=== PATIENT | female | born 1950 | race Caucasian/White ===

== ENCOUNTER → 2016-12-29 | Outpatient (CLI) | payer MEDICARE ==
--- NOTE | 2016-12-31 08:00 | MM ---
Reason for exam: screening (asymptomatic). Last mammogram was performed 2 years ago. History: Patient is postmenopausal. Family history of breast cancer in maternal cousin at age 60 and breast cancer in paternal aunt at age 60. Physical Findings: A clinical breast exam by your physician is recommended on an annual basis and results should be correlated with mammographic findings. MG 3D Screening Mammo W/Cad Bilateral CC and MLO view(s) were taken. Prior study comparison: December 17, 2014, bilateral MG screening mammo w CAD. April 24, 2011, bilateral digital screening mammo w/CAD. January 06, 2010, bilateral digital screening mammogram. There are scattered fibroglandular densities. There is chronic nodularity in the right breast. No significant changes when compared with prior studies. ASSESSMENT: Negative, BI-RAD 1 RECOMMENDATION: Routine screening mammogram of both breasts in 1 year.
== END | disposition home or self-care (01) ==
LOC: RADMAMWWP 09:21
PROVIDERS: ATTEND Family Medicine
DX: Z12.31 Encounter for screening mammogram for malignant neoplasm of breast (principal)
CPT/HCPCS: 77063; G0202